=== PATIENT | female | born 1955 | race Caucasian/White ===

== ENCOUNTER 2019-07-09 10:26 | Outpatient (CLI) | payer BC, SELFPAY ==
--- NOTE | 2019-07-09 11:00 | US_ITS ---
WS: [id number] ULTRASOUND BREAST RIGHT TECHNIQUE: Ultrasound right breast focused area of concern. CLINICAL INFORMATION: lump in rt axilla with firm center. History of right lumpectomy. COMPARISON: None. FINDINGS: Reported palpable lump right axilla. A few normal size lymph nodes right axilla. No pathologic lympha denopathy. No lesions to target for biopsy. US/US breast RT limited* [id number] IMPRESSION: A few normal-appearing lymph nodes right axilla.
== END 2019-07-09 10:27 | disposition home or self-care (01) ==
LOC: RAD 10:29
PROVIDERS: PCP Family Medicine; Visit Provider Nurse Practitioner Family
DX: N63.10 Unspecified lump in the right breast, unspecified quadrant (principal); Z90.11 Acquired absence of right breast and nipple
CPT/HCPCS: 76642

== ENCOUNTER 2019-10-20 14:41 | Outpatient (CLI) | payer BC, SELFPAY ==
--- NOTE | 2019-10-20 14:55 | XR_ITS ---
WS: [id number] DEXA (DUAL ENERGY X-RAY ABSORPTIOMETRY) Bone mineral density was performed using a [employer] machine. HISTORY: OSTEOPOROSIS WITHOUT CURRENT PATHOLOGICAL FRACTURE COMPARISON: 08/19/2017 Lumbar spine BMD (L1-L4): 0.850 g/cm2 T score: -2.7 Z score: -1.3 Total hip BMD: Left: 0.892 g/cm2. T score: -0.9 Z score: 0.2 Right: 0.857 g/cm2. T score: -1.2 Z score: -0.1 10 year probability of a major osteoporotic fracture is 9%. Compared to the prior study from 08/19/2017. Lumbar spine bone mineral density has decreased by 0.9%. Bilateral hips bone mineral density has decrease by 0.9%. XR/XR DEXA axial skeleton* [id number] IMPRESSION: OSTEOPOROSIS based upon the WHO classification for females. No significant hutchins ge in bone mineral density since the prior study.
== END 2019-10-20 14:42 | disposition home or self-care (01) ==
LOC: RADWPI 14:44
PROVIDERS: PCP Family Medicine; Visit Provider Internal Medicine Medical Oncology
DX: M81.0 Age-related osteoporosis without current pathological fracture (principal)
CPT/HCPCS: 77080

== ENCOUNTER → 2020-04-11 10:52 | Outpatient (BNVA) | payer MEDICARE, OTHER, SELFPAY | PROVIDERS: PCP Family Medicine; Visit Provider Podiatrist Foot & Ankle Surgery | DX: M21.611 Bunion of right foot (principal); B35.1 Tinea unguium; B35.3 Tinea pedis; M79.671 Pain in right foot | CPT/HCPCS: 73630 ==

== ENCOUNTER 2021-10-24 14:21 | Outpatient (CLI) | payer MEDICARE, OTHER, SELFPAY ==
--- NOTE | 2021-10-24 15:21 | XR_ITS ---
WS: [id number] SCREENING DEXA SCAN [employer] CLINICAL INFORMATION: POST MENOPAUSAL COMPARISON: 10/20/2019 FINDINGS: The L1-L4 bone mineral density measures 0.792 g/cm2. This corresponds to a T score score of -3.2 and Z score of -1.7. Left femoral neck bone mineral density measures 0.881 g/cm2. This corresponds to a T score of -1.0 an d Z score of 0.2. Right femoral neck bone mineral density measures 0.849 g/cm2. This corresponds to a T score -1.3of an d Z score of -0.1. Mean femoral neck bone mineral density measures 0.865 g/cm2. This corresponds to a T score of -1.1 an d Z score of 0.1. XR/XR DEXA axial skeleton* [id number] IMPRESSION: Osteoporosis lumbar spine. Osteopenia femoral necks. Patient's FRAX calculated 10 year probability for major osteoporotic fracture i s 9.3 % and osteoporotic hip fracture is 1.7%. Bone mineral density lumbar spine has decreased -6.8% compared to 2020 Bone mineral density femoral necks has decreased -1.1% since 2020
== END 2021-10-24 14:22 | disposition home or self-care (01) ==
LOC: RAD 14:23
PROVIDERS: PCP Family Medicine; Visit Provider Internal Medicine Medical Oncology
DX: Z78.0 Asymptomatic menopausal state (principal); M81.0 Age-related osteoporosis without current pathological fracture
CPT/HCPCS: 77080

== ENCOUNTER 2023-07-25 13:39 | Outpatient (CLI) | payer MEDICARE, OTHER, SELFPAY ==
--- NOTE | 2023-07-25 13:44 | XR_ITS ---
WS: [id number] SCREENING DEXA SCAN [employer] CLINICAL INFORMATION: ASYMPTOMATIC MENOPAUSAL STATE COMPARISON: 2021 FINDINGS: The L1-L4 bone mineral density measures 0.805 g/cm2. This corresponds to a T score score of -3.1 and Z score of -1.6. Left femoral neck bone mineral density measures 0.867 g/cm2. This corresponds to a T score of -1.1 an d Z score of 0.2. Right femoral neck bone mineral density measures 0.823 g/cm2. This corresponds to a T score -1.5of an d Z score of -0.2. Mean femoral neck bone mineral density measures 0.845 g/cm2. This corresponds to a T score of -1.3 an d Z score of 0.0. XR/XR DEXA axial skeleton* [id number] IMPRESSION: Osteoporosis lumbar spine. Osteopenia femoral necks. Patient's FRAX calculated 10 year probability for major osteoporotic fracture i s 10.8% and osteoporotic hip fracture is 1.7%. Bone mineral density lumbar spine increased 1.6% bone mineral density femoral necks decreased -2.3%
== END 2023-07-25 13:40 | disposition home or self-care (01) ==
LOC: RAD 13:39
PROVIDERS: PCP Family Medicine; Visit Provider Internal Medicine
DX: Z78.0 Asymptomatic menopausal state (principal); M81.0 Age-related osteoporosis without current pathological fracture; M85.88 Other specified disorders of bone density and structure, other site
CPT/HCPCS: 77080